=== PATIENT | female | born 1955 | race Caucasian/White ===

== ENCOUNTER 2016-09-30 05:38 | Inpatient (IN) | payer OTHER, SELFPAY ==
[~2016-09-30 05:38] MED LIST: CRESTOR5 M1 PO; EFFEXOR XR150 M1 PO; MOBIC15 M2 PO; STOOL SOFTENER1 EAC4 PO; VITAMIN D32000 UNI3 PO; WOMEN'S DAILY1 EAC4 PO; [UNRECOGNIZED DRUG - CODE] PO
[2016-10-01 05:15] LABS: ANION GAP 12 mmol/L (0-20); BLOOD UREA NITROGEN 8 mg/dl (6-24); CALCIUM 8.7 mg/dl (8.5-10.5); CARBON DIOXIDE-VENOUS 29 mmol/L (22-32); CHLORIDE 107 mmol/l (96-110); CREATININE 0.73 mg/dl (0.50-1.10); GLUCOSE 117 mg/dL (70-110); SODIUM 143 mmol/L (135-145); eGFR VALUE FOR BLACK >90 mL/Min
[2016-10-01 05:16] LABS: POTASSIUM 4.5 mmol/L (3.7-5.1)
[2016-10-03] MEDS ORDERED: ROBAXIN-750750 M1 PO (11:33)
[2016-10-03] MEDS ORDERED: NORCO 5-325 TA1 EACH PO (11:34)
[2016-10-03] MEDS ORDERED: TYLENOL325 M2 PO (11:36)
[2016-11-03] MEDS ORDERED: CLEOCIN HCL300 M1 PO (15:46)
== END 2016-10-03 14:43 | DRG 460 ==
LOC: SHSA 05:38 → ORE 07:22 → PACU 11:31 → 5EC 12:35
PROVIDERS: ADMIT Neurological Surgery
PROC: 0SG00AJ Fusion of Lumbar Vertebral Joint with Interbody Fusion Device, Posterior Approach, Anterior Column, Open Approach (ICD-10-PCS; principal; 2016-09-30)
PROC: 0SG0071 Fusion of Lumbar Vertebral Joint with Autologous Tissue Substitute, Posterior Approach, Posterior Column, Open Approach (ICD-10-PCS; principal; 2016-09-30)
PROC: 00QT0ZZ Repair Spinal Meninges, Open Approach (ICD-10-PCS; principal; 2016-09-30)
PROC: 07DR3ZZ Extraction of Iliac Bone Marrow, Percutaneous Approach (ICD-10-PCS; principal; 2016-09-30)
DX: M48.06 Spinal stenosis, lumbar region (principal); Z68.41 Body mass index [BMI] 40.0-44.9, adult; G97.41 Accidental puncture or laceration of dura during a procedure; M54.16 Radiculopathy, lumbar region; F41.9 Anxiety disorder, unspecified; E66.01 Morbid (severe) obesity due to excess calories; E78.5 Hyperlipidemia, unspecified; Z87.891 Personal history of nicotine dependence; Y65.8 Other specified misadventures during surgical and medical care; Y92.234 Operating room of hospital as the place of occurrence of the external cause; Z88.1 Allergy status to other antibiotic agents; Z88.0 Allergy status to penicillin; Z79.899 Other long term (current) drug therapy
CPT/HCPCS: C1713; J0690; J1170; J2800; J3010; J3370

== ENCOUNTER 2016-11-04 14:12 | Inpatient (IN) | payer OTHER, SELFPAY ==
[~2016-11-04 14:12] MED LIST changes: +CLEOCIN HCL300 M1 PO; +NORCO 5-325 TA1 EACH PO; +ROBAXIN-750750 M1 PO; +TYLENOL325 M2 PO
[2016-11-04 15:57] LABS: BASO % 0.3 % (0-2); EOS % 0.4 % (0-7); HGB-HEMOGLOBIN 12.6 gm/dl (12.0-15.5); IMMATURE GRANULOCYTES ABSOLUTE 0.01 tho/cmm (0-0.03); IMMATURE GRANULOCYTES PERCENT 0.1 % (0-0.3); LYMPH % 28.7 % (20-45); LYMPH ABSOLUTE COUNT 2.2 tho/cmm (0.8-4.5); MCH (MEAN CORPUSCULAR HGB) 28.1 pg (28.0-32.0); MCHC MEAN CORPUSCULAR HGB CONC 32.3 % (32.0-36.0); MCV (MEAN CELL VOLUME) 87.1 fl (82.0-96.0); MEAN PLATELET VOLUME 9.1 cmc (9.4-12.4); MONO % 5.7 % (0-12); MONOCYTE ABSOLUTE COUNT 0.4 tho/cmm (0.0-1.2); NEUTROPHILS % 64.8 % (40-80); PLATELET COUNT 296 tho/cmm (150-450); RED BLOOD COUNT 4.48 mil/cmm (4.00-5.20); RED CELL DISTRIBUTION WIDTH 14.4 % (12.4-16.4); WHITE BLOOD COUNT 7.7 tho/cmm (4.0-10.0)
[2016-11-04 16:09] LABS: ANION GAP 12 mmol/L (0-20); BLOOD UREA NITROGEN 11 mg/dl (6-24); C-REACTIVE PROTEIN 1.1 mg/dl (0-0.9); CALCIUM 9.5 mg/dl (8.5-10.5); CARBON DIOXIDE-VENOUS 27 mmol/L (22-32); CHLORIDE 107 mmol/l (96-110); CREATININE 0.86 mg/dl (0.50-1.10); GLUCOSE 80 mg/dL (70-110); SODIUM 142 mmol/L (135-145); eGFR VALUE FOR BLACK 86 mL/Min
[2016-11-05] MEDS ORDERED: NORCO 5-325 TA1 EACH PO (10:47)
[2016-11-05] MEDS ORDERED: SENOKOT-S TABL1 EACH PO (10:48)
== END 2016-11-05 14:50 | disposition home health service (06) | DRG 920 ==
LOC: SHSA 14:12 → ORE 17:26 → PACU 18:40 → 5EA 20:40
PROVIDERS: ADMIT Neurological Surgery
PROC: 0J970ZX Drainage of Back Subcutaneous Tissue and Fascia, Open Approach, Diagnostic (ICD-10-PCS; principal; 2016-11-04)
DX: T81.31XA Disruption of external operation (surgical) wound, not elsewhere classified, initial encounter (principal); Z68.41 Body mass index [BMI] 40.0-44.9, adult; I10 Essential (primary) hypertension; E66.01 Morbid (severe) obesity due to excess calories; E78.5 Hyperlipidemia, unspecified; F32.9 Major depressive disorder, single episode, unspecified; Z87.891 Personal history of nicotine dependence; Z79.899 Other long term (current) drug therapy; Z88.1 Allergy status to other antibiotic agents; Z88.0 Allergy status to penicillin; Y83.8 Other surgical procedures as the cause of abnormal reaction of the patient, or of later complication, without mention of misadventure at the time of the procedure
CPT/HCPCS: J1170; J3010